=== PATIENT | female | born 1930 | race Caucasian/White ===

== ENCOUNTER 2020-02-09 10:12 | Inpatient (IN) ==
[2020-02-09] MEDS ORDERED: dilTIAZem Drip 125 MG/125 ML PREMIX IV ONE (10:45)
[2020-02-09] MEDS ORDERED: DILTIAZEM 50 MG/10 ML VIAL IV STA (10:45)
[2020-02-09 10:53] LABS: Basophils # 0.1 10*3/uL (0.0-0.2); Basophils % 0.5 % (0.0-0.8); Eosinophils % 0.2 % (0.00-10.9); Hematocrit 36.4 VOL% (35.7-47.0); Hemoglobin 11.7 GM/DL (12.0-16.0); Immature Granulocytes % 0.6 %; Immature Granulocytes Absolute 0.07 #; Lymphocytes # 1.9 10*3/uL (1.4-4.0); Lymphocytes % 17.1 % (21.3-54.2); Mean Corpuscular HGB Conc 32.1 GM/DL (32-36); Mean Corpuscular Volume 85.8 FL (87-102); Mean Platelet Volume 10.8 FL (9.6-12.0); Monocytes % 10.6 % (1.7-12.7); Platelet Count 186 T/CUMM (130-400); Red Blood Count 4.24 MC/CUMM (3.8-5.5)
[2020-02-09] MEDS: dilTIAZem Drip 125 MG/125 ML PREMIX IV SCH (11:00)
[2020-02-09 11:11] LABS: INR 1.2; PT Patient Result 13.1 SECS (9.8-11.9)
[2020-02-09 11:15] LABS: Bilirubin,Total 0.4 MG/DL (0.2-1.0); Calcium 9.6 MG/DL (8.5-10.1); Osmolality,Calculated 277.7 MOS/KG (273-304); Total Protein 8.1 G/DL (6.4-8.3)
[2020-02-09] MEDS ORDERED: ENOXAPARIN 30 MG/0.3 ML SYRINGE SUBCUT STA (12:10)
[2020-02-09] MEDS ORDERED: DEXTROSE 50% 25 GM/50 ML VIAL IV PRN (12:32)
[2020-02-09] MEDS ORDERED: ONDANSETRON 4 MG/2 ML VIAL IV PRN (12:32)
[2020-02-09] MEDS ORDERED: GLUCAGON 1 MG VIAL IM PRN (12:32)
[2020-02-09] MEDS ORDERED: ACETAMINOPHEN 325 MG TABLET PO PRN (12:32)
[2020-02-09] MEDS ORDERED: BISACODYL 5 MG TABLET PO PRN (12:32)
[2020-02-09] MEDS ORDERED: LEVALBUTEROL 1.25 MG/3 ML NEB RESP TX PRN (12:36)
[2020-02-09] MEDS ORDERED: dilTIAZem Drip 125 MG/125 ML PREMIX IV SCH (13:00)
[2020-02-09] MEDS ORDERED: ENOXAPARIN 60 MG/0.6 ML SYRINGE SUBCUT SCH (15:00)
[2020-02-09] MEDS: DILTIAZEM 30 MG TABLET PO SCH ×2 (17:21→22:20)
[2020-02-09] MEDS: HEPARIN DRIP 25,000 UNITS/500 ML PREMIX IV SCH (17:22)
[2020-02-09] MEDS: ASPIRIN EC 81 MG TABLET PO SCH (17:22)
[2020-02-09] MEDS: INSULIN LISPRO 100 UNIT/ML SUBCUT SCH ×2 (17:52→22:16)
[2020-02-09 18:37] LABS: Bilirubin,Urine Negative (Negative); Blood, Urine Negative (Negative); Glucose,Urine (UA) Negative (Negative); Hyaline Casts,Urine 1 /LPF (0-3); Ketones,Urine Negative (Negative); Mucus,Urine Occasional /LPF (Occasional); Nitrite,Urine Negative (Negative); Protein,Urine Negative; RBC,Urine 3 /HPF (0-4); Squamous Epithelial Cell,Urine Occasional /HPF (0-10); Urine Appearance CLEAR (Clear); Urine Color Yellow (Yellow); Urine Specific Gravity 1.028 (1.001-1.035); Urine Urobilinogen < 2.0 EU/DL (0.2-1.0); WBC,Urine 4 /HPF (0-6)
[2020-02-09] MEDS: MONTELUKAST 10 MG TABLET PO SCH (22:00)
[2020-02-09] MEDS: ROSUVASTATIN 10 MG TABLET PO SCH (22:00)
[2020-02-10] MEDS: BUDESONIDE/FORMOTEROL 160-4.5 INHALER 6 GM INH SCH ×3 (00:05→20:53)
[2020-02-10 04:37] LABS: Basophils # 0.1 10*3/uL (0.0-0.2); Basophils % 0.5 % (0.0-0.8); Eosinophils # 0.1 10*3/uL (0.0-0.87); Eosinophils % 0.8 % (0.00-10.9); Hematocrit 32.8 VOL% (35.7-47.0); Hemoglobin 10.4 GM/DL (12.0-16.0); Immature Granulocytes % 0.3 %; Immature Granulocytes Absolute 0.03 #; Lymphocytes % 21.3 % (21.3-54.2); Mean Corpuscular HGB Conc 31.7 GM/DL (32-36); Mean Corpuscular Volume 87.9 FL (87-102); Mean Platelet Volume 12.6 FL (9.6-12.0); Monocytes % 11.9 % (1.7-12.7); Neutrophils % 65.2 % (38.7-73.9); Platelet Count 169 T/CUMM (130-400); Red Blood Count 3.73 MC/CUMM (3.8-5.5); Red Cell Distribution Width 16.1 % (9.3-17.3); White Blood Count 9.2 T/CUMM (4-12)
[2020-02-10 04:45] LABS: INR 1.2; PT Patient Result 12.4 SECS (9.8-11.9)
[2020-02-10] MEDS: DILTIAZEM 30 MG TABLET PO SCH (05:25)
[2020-02-10] MEDS: LEVALBUTEROL 1.25 MG/3 ML NEB RESP TX PRN (06:48)
[2020-02-10] MEDS: DIGOXIN 0.125 MG TABLET PO SCH (08:45)
[2020-02-10] MEDS: ASPIRIN EC 81 MG TABLET PO SCH (08:45)
[2020-02-10] MEDS: PANTOPRAZOLE 40 MG TABLET PO SCH (08:45)
[2020-02-10] MEDS: INSULIN LISPRO 100 UNIT/ML SUBCUT SCH ×4 (08:46→20:41)
[2020-02-10] MEDS ORDERED: WARFARIN 5 MG TABLET PO SCH (09:00)
[2020-02-10] MEDS ORDERED: DILTIAZEM CD 240 MG CAPSULE PO SCH (09:00)
[2020-02-10 09:24] LABS: Calcium 9.4 MG/DL (8.5-10.1); Osmolality,Calculated 277.7 MOS/KG (273-304); Thyroid Stimulating Hormone 1.05 uIU/ml (0.358-3.74)
[2020-02-10] MEDS ORDERED: SODIUM CHLORIDE 0.45% 500 ML IV ONE (11:20)
[2020-02-10] MEDS ORDERED: DIGOXIN 0.5 MG/2 ML AMP IV ONE (11:21)
[2020-02-10] MEDS: SODIUM CHLORIDE 0.45% 1,000 ML IV SCH (12:26)
[2020-02-10] MEDS ORDERED: DILTIAZEM 30 MG TABLET PO ONE (13:00)
[2020-02-10] MEDS: dilTIAZem Drip 125 MG/125 ML PREMIX IV SCH ×2 (13:16)
[2020-02-10] MEDS ORDERED: APIXABAN 5 MG TABLET PO ONE ×2 (15:37→17:28)
[2020-02-10] MEDS: HEPARIN DRIP 25,000 UNITS/500 ML PREMIX IV SCH (16:05)
[2020-02-10] MEDS: ROSUVASTATIN 10 MG TABLET PO SCH (20:50)
[2020-02-10] MEDS: MONTELUKAST 10 MG TABLET PO SCH (20:50)
[2020-02-10] MEDS: DILTIAZEM CD 240 MG CAPSULE PO SCH (20:51)
[2020-02-10] MEDS: APIXABAN 5 MG TABLET PO SCH (20:51)
[2020-02-11 06:21] LABS: Basophils % 0.5 % (0.0-0.8); Eosinophils # 0.1 10*3/uL (0.0-0.87); Eosinophils % 1.6 % (0.00-10.9); Hematocrit 30.7 VOL% (35.7-47.0); Hemoglobin 9.5 GM/DL (12.0-16.0); Immature Granulocytes % 0.6 %; Immature Granulocytes Absolute 0.05 #; Lymphocytes # 1.5 10*3/uL (1.4-4.0); Lymphocytes % 17.6 % (21.3-54.2); Mean Corpuscular HGB Conc 30.9 GM/DL (32-36); Mean Corpuscular Volume 88.2 FL (87-102); Mean Platelet Volume 11.3 FL (9.6-12.0); Monocytes % 10.9 % (1.7-12.7); Neutrophils % 68.8 % (38.7-73.9); Platelet Count 157 T/CUMM (130-400); Red Blood Count 3.48 MC/CUMM (3.8-5.5); Red Cell Distribution Width 15.8 % (9.3-17.3); White Blood Count 8.2 T/CUMM (4-12)
[2020-02-11] MEDS: SODIUM CHLORIDE 0.45% 1,000 ML IV SCH (06:30)
[2020-02-11 06:40] LABS: Calcium 8.9 MG/DL (8.5-10.1); Osmolality,Calculated 275.7 MOS/KG (273-304)
[2020-02-11] MEDS: PANTOPRAZOLE 40 MG TABLET PO SCH (08:48)
[2020-02-11] MEDS: DILTIAZEM CD 240 MG CAPSULE PO SCH ×2 (08:48→22:17)
[2020-02-11] MEDS: APIXABAN 5 MG TABLET PO SCH ×2 (08:48→22:17)
[2020-02-11] MEDS: DIGOXIN 0.125 MG TABLET PO SCH (08:48)
[2020-02-11] MEDS: ASPIRIN EC 81 MG TABLET PO SCH (08:48)
[2020-02-11] MEDS: BUDESONIDE/FORMOTEROL 160-4.5 INHALER 6 GM INH SCH ×2 (08:49→22:18)
[2020-02-11] MEDS: INSULIN LISPRO 100 UNIT/ML SUBCUT SCH ×4 (08:49→20:22)
[2020-02-11] MEDS: dilTIAZem Drip 125 MG/125 ML PREMIX IV SCH (11:47)
[2020-02-11] MEDS: LEVALBUTEROL 1.25 MG/3 ML NEB RESP TX PRN (13:52)
[2020-02-11] MEDS: ALBUTEROL 2.5 MG/3 ML NEB RESP TX PRN (20:14)
[2020-02-11] MEDS: MONTELUKAST 10 MG TABLET PO SCH (22:17)
[2020-02-11] MEDS: ROSUVASTATIN 10 MG TABLET PO SCH (22:17)
[2020-02-12 04:05] LABS: Basophils % 0.4 % (0.0-0.8); Eosinophils # 0.1 10*3/uL (0.0-0.87); Hematocrit 32.8 VOL% (35.7-47.0); Hemoglobin 10.2 GM/DL (12.0-16.0); Immature Granulocytes % 0.3 %; Immature Granulocytes Absolute 0.03 #; Lymphocytes # 1.5 10*3/uL (1.4-4.0); Lymphocytes % 16.3 % (21.3-54.2); Mean Corpuscular HGB Conc 31.1 GM/DL (32-36); Mean Corpuscular Volume 87.5 FL (87-102); Mean Platelet Volume 11.1 FL (9.6-12.0); Monocytes % 11.4 % (1.7-12.7); Neutrophils % 70.6 % (38.7-73.9); Platelet Count 182 T/CUMM (130-400); Red Blood Count 3.75 MC/CUMM (3.8-5.5); Red Cell Distribution Width 15.7 % (9.3-17.3); White Blood Count 9.1 T/CUMM (4-12)
[2020-02-12 04:33] LABS: Osmolality,Calculated 277.7 MOS/KG (273-304)
[2020-02-12] MEDS ORDERED: CLINDAMYCIN INJ 900 MG in PREMIX 1 EACH IV ONE (09:47)
[2020-02-12] MEDS: INSULIN LISPRO 100 UNIT/ML SUBCUT SCH ×4 (09:57→21:03)
[2020-02-12] MEDS: DILTIAZEM CD 240 MG CAPSULE PO SCH ×2 (09:59→21:02)
[2020-02-12] MEDS: PANTOPRAZOLE 40 MG TABLET PO SCH (09:59)
[2020-02-12] MEDS: DIGOXIN 0.125 MG TABLET PO SCH (09:59)
[2020-02-12] MEDS: BUDESONIDE/FORMOTEROL 160-4.5 INHALER 6 GM INH SCH ×2 (09:59→21:02)
[2020-02-12] MEDS ORDERED: BUPIVACAINE MPF 0.25% 30 ML VIAL ONE (10:17)
[2020-02-12] MEDS ORDERED: TISSUE ADHESIVE 1 EACH APPLICATOR TOP ONE (10:17)
[2020-02-12] MEDS ORDERED: LIDOCAINE 1%/EPI INJ 20 ML VIAL ONE (10:17)
[2020-02-12] MEDS ORDERED: propofoL 200 MG/20 ML VIAL IV ONE (11:59)
[2020-02-12] MEDS ORDERED: LIDOCAINE 1% 5 ML VIAL ONE (12:00)
[2020-02-12] MEDS: dilTIAZem Drip 125 MG/125 ML PREMIX IV SCH (13:36)
[2020-02-12] MEDS: APIXABAN 5 MG TABLET PO SCH ×3 (13:36→21:03)
[2020-02-12] MEDS: ASPIRIN EC 81 MG TABLET PO SCH (14:50)
[2020-02-12] MEDS: ROSUVASTATIN 10 MG TABLET PO SCH (21:03)
[2020-02-12] MEDS: MONTELUKAST 10 MG TABLET PO SCH (21:03)
[2020-02-13 06:04] LABS: Basophils % 0.4 % (0.0-0.8); Eosinophils # 0.1 10*3/uL (0.0-0.87); Hematocrit 32.9 VOL% (35.7-47.0); Hemoglobin 10.3 GM/DL (12.0-16.0); Immature Granulocytes % 0.5 %; Immature Granulocytes Absolute 0.05 #; Lymphocytes # 1.5 10*3/uL (1.4-4.0); Lymphocytes % 16.3 % (21.3-54.2); Mean Corpuscular HGB Conc 31.3 GM/DL (32-36); Mean Corpuscular Volume 87.3 FL (87-102); Mean Platelet Volume 11.9 FL (9.6-12.0); Monocytes % 11.7 % (1.7-12.7); Neutrophils % 70.1 % (38.7-73.9); Platelet Count 205 T/CUMM (130-400); Red Blood Count 3.77 MC/CUMM (3.8-5.5); Red Cell Distribution Width 15.6 % (9.3-17.3); White Blood Count 9.2 T/CUMM (4-12)
[2020-02-13 06:28] LABS: Calcium 9.2 MG/DL (8.5-10.1); Osmolality,Calculated 277.7 MOS/KG (273-304)
[2020-02-13] MEDS: INSULIN LISPRO 100 UNIT/ML SUBCUT SCH ×4 (07:54→21:02)
[2020-02-13] MEDS: APIXABAN 5 MG TABLET PO SCH ×2 (09:07→22:02)
[2020-02-13] MEDS: DIGOXIN 0.125 MG TABLET PO SCH (09:07)
[2020-02-13] MEDS: DILTIAZEM CD 240 MG CAPSULE PO SCH ×2 (09:08→22:01)
[2020-02-13] MEDS: ASPIRIN EC 81 MG TABLET PO SCH (09:08)
[2020-02-13] MEDS: BUDESONIDE/FORMOTEROL 160-4.5 INHALER 6 GM INH SCH ×2 (09:08→22:02)
[2020-02-13] MEDS: PANTOPRAZOLE 40 MG TABLET PO SCH (09:08)
[2020-02-13] MEDS: dilTIAZem Drip 125 MG/125 ML PREMIX IV SCH (10:49)
[2020-02-13] MEDS: ALBUTEROL 2.5 MG/3 ML NEB RESP TX PRN ×2 (11:17→16:10)
[2020-02-13] MEDS: MONTELUKAST 10 MG TABLET PO SCH (22:01)
[2020-02-13] MEDS: ROSUVASTATIN 10 MG TABLET PO SCH (22:01)
[2020-02-14] MEDS: ALBUTEROL 2.5 MG/3 ML NEB RESP TX PRN ×3 (07:12→15:31)
[2020-02-14] MEDS: INSULIN LISPRO 100 UNIT/ML SUBCUT SCH ×4 (09:02→21:05)
[2020-02-14] MEDS: DILTIAZEM CD 240 MG CAPSULE PO SCH ×2 (09:09→21:02)
[2020-02-14] MEDS: BUDESONIDE/FORMOTEROL 160-4.5 INHALER 6 GM INH SCH ×2 (09:09→21:04)
[2020-02-14] MEDS: APIXABAN 5 MG TABLET PO SCH ×2 (09:09→21:02)
[2020-02-14] MEDS: DIGOXIN 0.125 MG TABLET PO SCH (09:09)
[2020-02-14] MEDS: ASPIRIN EC 81 MG TABLET PO SCH (09:09)
[2020-02-14] MEDS: PANTOPRAZOLE 40 MG TABLET PO SCH (09:09)
[2020-02-14] MEDS: dilTIAZem Drip 125 MG/125 ML PREMIX IV SCH (13:19)
[2020-02-14] MEDS: ALBUTEROL 2.5 MG/3 ML NEB RESP TX SCH (19:55)
[2020-02-14] MEDS: MONTELUKAST 10 MG TABLET PO SCH (21:01)
[2020-02-14] MEDS: ROSUVASTATIN 10 MG TABLET PO SCH (21:01)
[2020-02-15] MEDS: ALBUTEROL 2.5 MG/3 ML NEB RESP TX SCH ×4 (00:39→11:01)
[2020-02-15 07:20] LABS: Basophils % 0.3 % (0.0-0.8); Eosinophils # 0.1 10*3/uL (0.0-0.87); Eosinophils % 0.8 % (0.00-10.9); Hematocrit 30.4 VOL% (35.7-47.0); Hemoglobin 9.4 GM/DL (12.0-16.0); Immature Granulocytes % 0.5 %; Immature Granulocytes Absolute 0.05 #; Lymphocytes % 10.9 % (21.3-54.2); Mean Corpuscular HGB Conc 30.9 GM/DL (32-36); Mean Corpuscular Volume 87.4 FL (87-102); Mean Platelet Volume 11.3 FL (9.6-12.0); Monocytes % 10.3 % (1.7-12.7); Neutrophils % 77.2 % (38.7-73.9); Platelet Count 179 T/CUMM (130-400); Red Blood Count 3.48 MC/CUMM (3.8-5.5); Red Cell Distribution Width 15.7 % (9.3-17.3); White Blood Count 9.2 T/CUMM (4-12)
[2020-02-15 07:42] LABS: Osmolality,Calculated 281.3 MOS/KG (273-304)
[2020-02-15] MEDS: DIGOXIN 0.125 MG TABLET PO SCH (09:21)
[2020-02-15] MEDS: INSULIN LISPRO 100 UNIT/ML SUBCUT SCH ×2 (09:21→12:30)
[2020-02-15] MEDS: PANTOPRAZOLE 40 MG TABLET PO SCH (09:22)
[2020-02-15] MEDS: BUDESONIDE/FORMOTEROL 160-4.5 INHALER 6 GM INH SCH (09:22)
[2020-02-15] MEDS: APIXABAN 5 MG TABLET PO SCH (09:22)
[2020-02-15] MEDS: ASPIRIN EC 81 MG TABLET PO SCH (09:22)
[2020-02-15] MEDS: DILTIAZEM CD 240 MG CAPSULE PO SCH (09:22)
[2020-02-15] MEDS: dilTIAZem Drip 125 MG/125 ML PREMIX IV SCH (12:23)
[2020-02-15 12:28] VITALS: BP 144/60
== END 2020-02-15 14:15 | DRG 167 ==
LOC: N.ED 10:12 → SUATTDRO 12:32 → N.EDINP 12:32 → N.ICU 13:40 → N.TELES 02-10 16:59
PROVIDERS: ADMIT Family Medicine; ATTEND Emergency Medicine